=== PATIENT | female | born 1965 | race Hispanic/Latino ===

== ENCOUNTER 2017-11-06 10:10 | Outpatient (CLI) | payer BC ==
--- NOTE | 2017-11-06 11:44 | Mammography Report ---
BONE DENSITY STUDY: Postmenopausal for evaluation. DEFINITIONS: BMD = Bone Mineral Density T-score = BMD related to mean peak bone mass of young adult (mean expressed in Standard Deviation) Z-score = Age matched BMD expressed in SD World Health Organization (WHO) Diagnostic Criteria Normal T-score > -1 SD Osteopenia T-score between -1 and -2.4 SD Osteoporosis T-score -2.5 SD or below FINDINGS: The weighted average BMD of lumbar spine L1-L4 is 1.001 with a T-score of -0.4. The weighted average BMD of the left hip is 0.909 with a T-score of -0.3. IMPRESSION: The patient's average T-score is diagnostic for normal bone density and low relative risk for fracture. NOTE: BMD is not the only risk factor for fracture; also consider factors such as the patient's age, risk of falling, previous osteoporotic fracture, family history of osteoporotic fractures, current smoker, and low body weight. Canales's triangle is a region of interest in femur, predominantly of trabecular bone. It is not a true anatomic site, and [facility] does not recommend its use clinically.
== END 2017-11-06 10:11 | disposition home or self-care (01) ==
LOC: SPVWC 10:10
PROVIDERS: ATTEND Internal Medicine Hematology & Oncology
DX: Z13.820 Encounter for screening for osteoporosis (principal); C50.411 Malignant neoplasm of upper-outer quadrant of right female breast; Z78.0 Asymptomatic menopausal state
CPT/HCPCS: 77080

== ENCOUNTER 2018-07-02 13:43 | Outpatient (CLI) | payer OTHER ==
--- NOTE | 2018-07-02 17:03 | Magnetic Resonance Report ---
FINAL REPORT PROCEDURE: MR UE JOINT RT WO CON TECHNIQUE: Magnetic resonance imaging of the RIGHT shoulder was performed using standard pulse sequences. CPT 07960 HISTORY: RIGHT SUPRASPINATUS TENDINITIS COMPARISON: No prior studies are available for comparison. FINDINGS: There is nonspecific cystic degenerative change seen in the superior lateral aspect of the humeral head. Moderate hypertrophic degenerative changes seen in the AC joint with osteophytic spurring projecting superiorly. No definite impingement. Bones of the shoulder otherwise appear normal. There is a linear band of abnormal increased T2 signal extending within the substance of the supraspinatus tendon from its insertion on the greater tuberosity extending medially. No extension to the articular or bursal surface. The appearance suggest tendinosis versus an intra substance tear. There is no evidence of full-thickness tear or retraction. Supraspinatus tendon otherwise appears normal. The infra spinatus tendon appears normal. Teres minor and subscapularis tendons appear normal. Long head of the biceps tendon is appropriately located within its groove and appears normal. Glenoid labrum appears normal. Articular surfaces appear smooth. There is no effusion. Small amount of fluid is seen in the subacromial/subdeltoid bursa. IMPRESSION: Tendinosis versus intra substance tear supraspinatus tendon. No evidence of full-thickness tear or retraction. Mild subacromial/subdeltoid bursitis. Nonspecific cystic degenerative change seen superior lateral aspect humeral head. Moderate hypertrophic degenerative changes AC joint as described. No other abnormalities are identified.
== END 2018-07-02 13:44 | disposition home or self-care (01) ==
LOC: MRI 13:43
PROVIDERS: ATTEND Orthopaedic Surgery
DX: M19.011 Primary osteoarthritis, right shoulder (principal)

== ENCOUNTER 2019-07-01 10:01 | Outpatient (CLI) | payer BC ==
--- NOTE | 2019-07-01 15:00 | Mammography Report ---
BILATERAL DIGITAL DIAGNOSTIC MAMMOGRAM WITH CAD, WITH AUGMENTATION, WITH TOMOSYNTHESIS -- 07/01/2019 INDICATION: Patient has history of right breast carcinoma in 2017 treated with lumpectomy and radiati on therapy. Prior mammogram in February 2018 questioned a probably benign postlumpectomy change in the right breast. TECHNIQUE: Digital bilateral mammographic imaging was performed. 2D implant views were obtained with 3-D tomosynthesis imaging of the pushback views in the MLO and CC projections. This examination was interpreted with the benefit of Computer-Aided Detection (CAD) analysis. COMPARISON: 02/26/2014, 03/26/2018 FINDINGS: Breast Density: The breasts are heterogeneously dense, which may obscure small masses. There is no evidence of dominant mass, suspicious calcifications or architectural distortion in eithe r breast. Postlumpectomy changes are seen in the right breast, unchanged. Biopsy clip is again noted in the upper outer quadrant of the left breast. Small benign nodule is present in the medial anterior left breast, unchanged from 2014 mammogram. Bilateral silicone retropectoral breast implants are present and without obvious abnormality. IMPRESSION: Benign findings. No evidence of malignancy. BI-RADS Category 2: Benign. Recommend routine screening mammography in one year A "normal" or negative report should not discourage follow up or biopsy of a clinically significant f inding. A written summary of these findings will be mailed to the patient. The patient will be entered into a mammography reporting system which will generate a reminder letter for the patient's next appointmen t at the appropriate interval. FURTHER INFORMATION: According to the [employer], yearly mammograms are recommend ed starting at age 40 and continuing as long as a woman is in good health. Breast MRI is recommended for women with an approximately 20-25% or greater lifetime risk of breast cancer, including women wi th a strong family history of breast or ovarian cancer and women who have been treated for Hodgkin's disease. Signer Name: Pippa Knight MD Signed: 07/01/2019 2:56 PM Workstation Name: [id number]
== END 2019-07-01 10:02 | disposition home or self-care (01) ==
LOC: SPVWC 10:01
PROVIDERS: ATTEND Internal Medicine Hematology & Oncology
DX: C50.411 Malignant neoplasm of upper-outer quadrant of right female breast (principal)
CPT/HCPCS: 77066; G0279

== ENCOUNTER 2019-10-16 10:48 | Outpatient (CLI) | payer BC ==
--- NOTE | 2019-10-17 15:58 | Magnetic Resonance Report ---
BILATERAL BREAST MR WITHOUT AND WITH GADOLINIUM INDICATION: Breast cancer survivor status post right partial mastectomy. COMPARISONS: 07/01/2019 bilateral mammogram. TECHNIQUE: Axial 1.0 mm T1 without, axial high-resolution 2.0 mm T2 and axial 1.0 mm dynamic vibrant high-resolution postcontrast T1 fat saturation sequences on a 1.5 [place] magnet. The examination was p erformed with an 8-channel dedicated [place] breast coil. Post-processing with CAD and subtraction was performed on an [employer] workstation. 14.0 cc of MultiHance was injected without incident for the c ontrast portion of the exam. Consent was obtained prior to the administration of the contrast. FINDINGS: RIGHT BREAST: Minimal background parenchymal enhancement. No mass or suspicious enhancement. An intac t subpectoral implant. No suspicious lymph nodes. LEFT BREAST: Minimal background parenchymal enhancement. No mass or suspicious enhancement. An intact subpectoral implant. No suspicious lymph nodes. IMPRESSION: Negative study with no evidence of malignancy. Recommend routine mammographic screening. BI-RADS Category 2: Benign Signer Name: Carlos Nichole MD Signed: 10/17/2019 3:53 PM Workstation Name: [id number]
== END 2019-10-16 10:49 | disposition home or self-care (01) ==
LOC: MRI 10:48
PROVIDERS: ATTEND Internal Medicine Hematology & Oncology
DX: C50.411 Malignant neoplasm of upper-outer quadrant of right female breast (principal)
CPT/HCPCS: A9577; C8908; 77049

== ENCOUNTER 2020-10-07 14:06 | Outpatient (CLI) | payer BC ==
--- NOTE | 2020-10-07 16:03 | Magnetic Resonance Report ---
Bilateral breast MR without and with contrast. History: Screening breast MRI, history of right breast lumpectomy. Comparison: 10/16/2019, 07/11/2019. Technique: Multiplanar multisequence MR images of the breast were obtained before and after the intra venous administration of intravenous contrast. Post processing analysis and review was performed on a separate computer workstation. Findings: Breast composition is heterogenously dense. There is mild background parenchymal enhancement within b oth breasts. Subpectoral implants appear intact bilaterally. RIGHT BREAST: Small low level enhancing dominant focus in the right upper outer breast is stable. No new discrete enhancing mass or other abnormal enhancement is identified. LEFT BREAST: Small low level enhancing dominant focus in the left superior breast is also stable. No new discrete enhancing mass or other abnormal enhancement is identified. Biopsy marker in the left up per outer breast is noted. No abnormal axillary or internal mammary lymph nodes. Impression: No evidence of breast malignancy. The patient is currently due for annual screening mammogram. If she has not had one within the past year, it is recommended that she have a mammogram in the near future . BIRADS 2: Benign A normal MRI does not exclude the presence of some forms of breast malignancy as literature reports s uggest that some forms of ductal carcinoma in situ or lobular carcinoma, particularly, may not be det ected on MRI. The sensitivity and specificity of MRI for cancers under 5 mm may be reduced. MRI does not replace the recommendation for annual conventional mammographic evaluation and should be used as an adjunct to mammography and physical examination as necessary. Signer Name: Jerry Dia MD Signed: 10/07/2020 3:58 PM Workstation Name: [id number]
== END 2020-10-07 14:07 | disposition home or self-care (01) ==
LOC: SPVIMAG 14:06
PROVIDERS: ATTEND Internal Medicine Hematology & Oncology
DX: C50.411 Malignant neoplasm of upper-outer quadrant of right female breast (principal)
CPT/HCPCS: A9577; C8908; 77049

== ENCOUNTER 2021-10-05 13:48 | Outpatient (CLI) | payer BC ==
--- NOTE | 2021-10-05 17:07 | Magnetic Resonance Report ---
MRI BREAST BILATERAL WITH AND WITHOUT CONTRAST, 10/05/2021 CLINICAL INFORMATION / INDICATION: MALIGNANT NEOPLASM OF UPPER OUTER QUAD OF RT BREAST. TECHNIQUE: Axial T1 and T2-weighted fat sat images were obtained precontrast. 12 cc Clariscan contras t was injected intravenously and serial axial T1 weighted images with fat saturation were obtained. 3 -D MIP projections, kinetic analysis, and subtraction imaging were utilized to evaluate. A dedicated 8-channel breast coil was used for image acquisition. COMPARISON: Breast MRI dated 10/07/2020 FINDINGS: BREAST DENSITY: Heterogeneously dense. BACKGROUND ENHANCEMENT: Low level background enhancement within both breasts. RIGHT BREAST: No dominant mass or suspicious area of enhancement in the right breast. A retropectoral implant is unchanged. LEFT BREAST: No dominant mass or suspicious area of enhancement in the left breast. A retropectoral i mplant is unchanged. AXILLAE: No pathologically enlarged axillary lymph nodes. ADDITIONAL FINDINGS: Limited imaging of the thorax and upper abdomen demonstrates no focal abnormalit y. IMPRESSION: 1. No MRI evidence of malignancy. Follow up recommendation: Back to schedule. BI-RADS Category 2: Benign. Signer Name: Nacho Castillo MD Signed: 10/05/2021 5:03 PM Workstation Name: [id number]
== END 2021-10-05 13:49 | disposition home or self-care (01) ==
LOC: SPVIMAG 13:48
PROVIDERS: ATTEND Internal Medicine Hematology & Oncology
DX: C50.411 Malignant neoplasm of upper-outer quadrant of right female breast (principal); M89.9 Disorder of bone, unspecified; E83.52 Hypercalcemia
CPT/HCPCS: A9575; C8908; 77049